=== PATIENT | male | born 1955 | race Caucasian/White ===

== ENCOUNTER 2022-11-18 02:24 | Emergency (ER) | payer MEDICARE | END 2022-11-18 03:21 | disposition home or self-care (01) | LOC: CSHERS 02:24 | DX: H10.9 Unspecified conjunctivitis (principal); I10 Essential (primary) hypertension; I25.10 Atherosclerotic heart disease of native coronary artery without angina pectoris; E78.5 Hyperlipidemia, unspecified; M10.9 Gout, unspecified | CPT/HCPCS: 99282 ==